=== PATIENT | male | born 2000 | race Caucasian/White ===

== ENCOUNTER 2019-07-08 17:03 | Emergency (ER) | payer OTHER ==
[~2019-07-08] VITALS: Ht 193 cm; Wt 90.0 kg
--- NOTE | 2019-07-08 17:23 | PHYS DOC ---
Adult General Chief Complaint Chief Complaint: CHEST PAIN HPI HPI Patient is a 18 year old healthy male who states he developed L sided chest pain on Sunday (2 d ago). He states that on Sunday he had his wisdom teeth removed at an application engineer clinic at [facility]. He did require sedation but was not under general anesthesia. He denies cardiac history and denies asthma. He does report that last week he was sick with cough and cold symptoms but states those have resolved. He denies persistent cough. Review of Systems Review of Systems Constitutional: Denies fever or chills HENT: Denies nasal congestion or sore throat. Reports dental pain from recent wisdom tooth extraction. Respiratory: Denies cough or shortness of breath Cardiovascular: Reports L sided chest pain GI: Denies abdominal pain, nausea, vomiting, bloody stools or diarrhea Musculoskeletal: Denies back pain or joint pain Integument: Denies rash or skin lesions Neurologic: Denies headache, focal weakness or sensory changes All other systems were reviewed and found to be within normal limits, except as documented in this note. Current Medications Current Medications Current Medications Medications (Trade) Dose Ordered Sig/Bennie Start Time Stop Time Status Last Admin Dose Admin Ketorolac Tromethamine (Toradol 30mg Vial) 30 mg 1X ONCE 07/08/19 17:30 07/08/19 17:31 DC Allergies Allergies Allergies Coded Allergies Type Severity Reaction Last Updated Verified No Known Drug Allergies 07/08/19 No Physical Exam Physical Exam Constitutional: Well developed, well nourished, no acute distress, non-toxic appearance. HENT: Normocephalic, atraumatic, bilateral external ears normal, oropharynx moist, nose normal. [place] teeth surgical site appear well. Neck: Normal range of motion, no tenderness, supple, no stridor. Cardiovascular:Heart rate regular rhythm, no murmur Lungs & Thorax: Bilateral breath sounds clear to auscultation Abdomen: Bowel sounds normal, soft, no tenderness, no masses, no pulsatile masses. Skin: Warm, dry, no erythema, no rash. Back: No tenderness, no CVA tenderness. Extremities: No tenderness, no cyanosis, no clubbing, ROM intact, no edema. Neurologic: Alert and oriented X 3, normal motor function, normal sensory function, no focal deficits noted. Psychologic: Affect normal, judgement normal. Anxious Current Patient Data Vital Signs Vital Signs Date Time Temp Pulse Resp B/P (MAP) Pulse Ox O2 Delivery O2 Flow Rate FiO2 07/08/19 17:15 98.2 88 14 145/80 (101) 100 Room Air 98.2 Lab Values Laboratory Tests Test 07/08/19 17:19 White Blood Count 9.1 x10^3/uL (4.0-11.0) Red Blood Count 4.35 x10^6/uL (4.30-5.70) Hemoglobin 14.1 g/dL (13.0-17.5) Hematocrit 39.9 % (39.0-53.0) Mean Corpuscular Volume 92 fL (79-100) Mean Corpuscular Hemoglobin 32 pg (25-35) Mean Corpuscular Hemoglobin Concent 35 g/dL (31-37) Red Cell Distribution Width 11.6 % (11.5-14.5) Platelet Count 299 x10^3/uL (140-400) Neutrophils (%) (Auto) 61 % (31-73) Lymphocytes (%) (Auto) 29 % (24-48) Monocytes (%) (Auto) 9 % (0-9) Eosinophils (%) (Auto) 1 % (0-3) Basophils (%) (Auto) 1 % (0-3) Neutrophils # (Auto) 5.5 x10^3/uL (1.8-7.7) Lymphocytes # (Auto) 2.6 x10^3/uL (1.0-4.8) Monocytes # (Auto) 0.8 x10^3/uL (0.0-1.1) Eosinophils # (Auto) 0.1 x10^3/uL (0.0-0.7) Basophils # (Auto) 0.1 x10^3/uL (0.0-0.2) D-Dimer (Stephanie) < 0.27 ug/mlFEU Sodium Level 139 mmol/L (136-145) Potassium Level 3.9 mmol/L (3.5-5.1) Chloride Level 102 mmol/L (98-107) Carbon Dioxide Level 29 mmol/L (21-32) Anion Gap 8 (6-14) Blood Urea Nitrogen 21 mg/dL (8-26) Creatinine 1.0 mg/dL (0.7-1.3) Estimated GFR (Cockcroft-Gault) 95.3 BUN/Creatinine Ratio 21 (6-20) H Glucose Level 95 mg/dL (70-99) Calcium Level 9.7 mg/dL (8.5-10.1) Total Bilirubin 0.3 mg/dL (0.2-1.0) Aspartate Amino Transferase (AST) 28 U/L (15-37) Alanine Aminotransferase (ALT) 28 U/L (16-63) Alkaline Phosphatase 55 U/L (46-116) Creatine Kinase 138 U/L (39-308) Creatine Kinase MB (Mass) 0.9 ng/mL (0.0-3.6) Creatine Kinase MB Relative Index 0.7 % (0-4) Troponin I Quantitative < 0.017 ng/mL (0.000-0.055) Total Protein 8.2 g/dL (6.4-8.2) Albumin 4.4 g/dL (3.4-5.0) Albumin/Globulin Ratio 1.2 (1.0-1.7) Laboratory Tests 07/08/19 17:19 Laboratory Tests 07/08/19 17:19 EKG EKG EKG: NSR, 87 bpm, R sided heart strain Radiology/Procedures Radiology/Procedures CXR: neg for acute finding Course & Med Decision Making Course & Med Decision Making Pt's labs and CXR reassuring. He is feeling better while in ER. Pt has been on Percocet for his wisdom teeth extraction and has not had normal BM's so discussed possible gas causing this pain as well and recommend Miralax and Gas- X. Pt could also have pleurisy and he is on Ibuprofen 600mg at home for his teeth and discussed that this can be helpful. Pt also admits that when he had some pain he googled chest pain and then became very anxious that he might be having a heart attack and feels some of his symptoms could be from anxiety. Pt encouraged to return to ER with any worsening symptoms and f/u with PCP. David Disclaimer David Disclaimer This electronic medical record was generated, in whole or in part, using a voice recognition dictation system. Departure Departure Impression: Primary Impression: Pleurisy Disposition: 01 HOME, SELF-CARE Condition: IMPROVED Patient Instructions: Pleurisy, [id number] Additional Instructions: Your chest pain could be from several different things: pleurisy or inflammation of the lung lining, anxiety or even gas/constipation from being on pain medicine for your teeth. We recommend over the counter Miralax and Gas-X and if your pain is controlled with Ibuprofen, would stop the Percocet. Rest and follow up with your primary care doctor and return with any worsening symptoms. SIENNA LUND Jul 08, 2019 17:23
[2019-07-08 17:29] LABS: BASO # 0.1 x10^3/uL (0.0-0.2); BASO % 1 % (0-3); EOS # 0.1 x10^3/uL (0.0-0.7); EOS % 1 % (0-3); HEMATOCRIT 39.9 % (39.0-53.0); HEMOGLOBIN 14.1 g/dL (13.0-17.5); LYMPH # 2.6 x10^3/uL (1.0-4.8); LYMPH % 29 % (24-48); MEAN CORPUSCULAR HEMOGLOBIN 32 pg (25-35); MEAN CORPUSCULAR HGB CONC 35 g/dL (31-37); MEAN CORPUSCULAR VOLUME 92 fL (79-100); MONO # 0.8 x10^3/uL (0.0-1.1); MONO % 9 % (0-9); NEUT # 5.5 x10^3/uL (1.8-7.7); NEUT % 61 % (31-73); PLATELET COUNT 299 x10^3/uL (140-400); RED BLOOD COUNT 4.35 x10^6/uL (4.30-5.70); RED CELL DISTRIBUTION WIDTH 11.6 % (11.5-14.5); WHITE BLOOD COUNT 9.1 x10^3/uL (4.0-11.0)
[2019-07-08] MEDS: KETOROLAC 30 MG/ML VIAL. IVP ONE (17:30)
[2019-07-08 17:48] LABS: CALCIUM 9.7 mg/dL (8.5-10.1); GFR 95.3; POTASSIUM 3.9 mmol/L (3.5-5.1)
[2019-07-08 17:54] LABS: ALBUMIN 4.4 g/dL (3.4-5.0); ALBUMIN/GLOBULIN RATIO 1.2 (1.0-1.7); TOTAL BILIRUBIN 0.3 mg/dL (0.2-1.0); TOTAL PROTEIN 8.2 g/dL (6.4-8.2)
[2019-07-08 18:00] VITALS: BP 138/60
--- NOTE | 2019-07-08 19:04 | RAD ---
And lateral chest radiographs 07/08/2019 Clinical history: Left-sided chest pain. PA and lateral digital radiographs of chest were obtained. Comparison study is dated 07/08/2019. The cardiac and mediastinal silhouettes are within normal limits in size and configuration. No acute pulmonary infiltrate is seen. No pleural effusion or pneumothorax is noted. The osseous structures are grossly intact. IMPRESSION: No acute abnormality is seen. Electronically signed by: Fidel Lama MD (07/08/2019 7:01 PM) [id number]
--- NOTE | 2019-07-09 06:11 | EKG ---
[facility] [address] [place] [address] Test Date: 2019-07-08 Test Time: 17:11:16 Pat Name: RICKY LEONARD Department: Room: Gender: M Radiological Technologist: : 2000 Requested By: SIENNA LUND Order Number: [id number] Reading MD: Measurements Intervals Goodman Rate: 87 P: 66 AL: 156 QRS: 118 QRSD: 104 T: 26 QT: 340 QTc: 410 Interpretive Statements SINUS RHYTHM ABNORMAL RIGHT AXIS DEVIATION CONSIDER RIGHT VENTRICULAR HYPERTROPHY QRS(T) CONTOUR ABNORMALITY CONSIDER ANTEROLATERAL MYOCARDIAL DAMAGE ABNORMAL ECG RI6.01 No previous ECG available for comparison
== END 2019-07-08 19:11 | disposition home or self-care (01) ==
LOC: ER 17:03
DX: R09.1 Pleurisy (principal)
CPT/HCPCS: 36415; 71046; 80053; 82553; 84484; 85025; 85379; 93005; 99285-25